=== PATIENT | male | born 1945 | race Caucasian/White ===

== ENCOUNTER → 2016-11-11 | Outpatient (CLI) | payer MEDICARE | END | disposition home or self-care (01) | LOC: GMAM 10:35 | PROVIDERS: ATTEND Family Medicine | DX: Z12.5 Encounter for screening for malignant neoplasm of prostate (principal) ==

== ENCOUNTER → 2017-12-01 | Outpatient (CLI) | payer MEDICARE | LOC: GMAM 10:14 | PROVIDERS: ATTEND Family Medicine | DX: Z12.5 Encounter for screening for malignant neoplasm of prostate (principal) ==

== ENCOUNTER → 2018-01-13 | Outpatient (CLI) | payer MEDICARE | LOC: GMAM 11:05 | PROVIDERS: ATTEND Family Medicine | DX: N18.3 Chronic kidney disease, stage 3 (moderate) (principal) ==

== ENCOUNTER → 2018-02-16 | Outpatient (CLI) | payer MEDICARE ==
--- NOTE | 2018-02-16 10:53 | US ---
EXAM DESCRIPTION: Carotid Duplex CLINICAL HISTORY: CAROTID STENOSIS COMPARISON: None Available. TECHNIQUE: Carotid Doppler ultrasound FINDINGS: Right Submitted images show tortuosity of the right CCA with calcified plaque of the right carotid bulb and proximal internal and external carotid arteries. Axial images show 27% narrowing of the right ICA luminal area. There is 34% area narrowing of the right carotid bulb. The following flow velocities were obtained: Common carotid artery peak systolic flow velocity measures 113 centimeters per second. Internal carotid artery peak systolic flow velocity measures 72 centimeters per second. External carotid artery peak systolic flow velocity measures 66 centimeters per second. Flow in the right vertebral artery is antegrade. The right internal carotid to common carotid peak systolic flow velocity ratio equals 0.6 which is normal. Left Submitted images show mild tortuosity of the left CCA with arteriosclerotic plaque in the left carotid bifurcation. The following flow velocities were obtained: Common carotid artery peak systolic flow velocity measures 124 centimeters per second. Internal carotid artery peak systolic flow velocity measures 57 centimeters per second. External carotid artery peak systolic flow velocity measures 82 centimeters per second. Flow in the left vertebral artery is antegrade. The left internal carotid to common carotid peak systolic flow velocity ratio of 0.5 is normal. IMPRESSION: Arteriosclerotic plaque at the carotid bifurcations bilaterally, right more than left. No hemodynamically significant stenosis. Electronically signed by: Keven Myers MD 02/16/2018 10:52 AM CDT
--- NOTE | 2018-02-16 10:58 | US ---
Exam: Bilateral lower extremity arterial Doppler sonogram CLINICAL HISTORY: Peripheral vascular disease TECHNIQUE: Doppler sonographic evaluation of the bilateral lower extremities was performed. Gordon scale images are evaluated. Color Doppler imaging was performed. Duplex Doppler evaluation with spectral waveform analysis. FINDINGS: Right Submitted sonographic images reveal calcified plaque in the common femoral and superficial femoral arteries with positive color flow. There is calcified plaque in the right popliteal artery. Positive arterial flow in the vessels below the right knee. The following peak systolic flow flow velocity measurements were obtained: Common femoral artery velocity equals 62 centimeters per second , triphasic. Superficial femoral artery velocity equals 52-95 centimeters per second , biphasic. Popliteal artery velocity equals 49 centimeters per second , triphasic. Peroneal artery velocity equals 44 centimeters per second , biphasic. Posterior tibial artery velocity equals 55 centimeters per second , biphasic. Dorsalis pedis artery velocity equals 14 centimeters per second , biphasic. Left Submitted sonographic images reveal calcified plaque in the left superficial femoral artery and popliteal artery. Arterial flow is seen below the left knee. The following peak systolic flow flow velocity measurements were obtained: Common femoral artery velocity equals 95 centimeters per second , triphasic. Superficial femoral artery velocity equals 53-87 centimeters per second , triphasic. Popliteal artery velocity equals 47 centimeters per second , triphasic. Peroneal artery velocity equals 43 centimeters per second , biphasic. Posterior tibial artery velocity equals 53 centimeters per second , biphasic. Dorsalis pedis artery velocity equals 24 centimeters per second , biphasic. IMPRESSION: Multiphasic flow in the lower extremity arteries with no significant stenosis identified on Doppler sonography. Electronically signed by: Keven Myers MD 02/16/2018 10:57 AM CDT
== END ==
LOC: US 09:00
PROVIDERS: ATTEND Family Medicine
DX: I65.23 Occlusion and stenosis of bilateral carotid arteries (principal); I73.9 Peripheral vascular disease, unspecified

== ENCOUNTER → 2018-12-18 | Outpatient (CLI) | payer MEDICARE | LOC: GMAM 11:46 | PROVIDERS: ATTEND Family Medicine | DX: Z12.5 Encounter for screening for malignant neoplasm of prostate (principal) ==

== ENCOUNTER 2019-08-17 05:45 | Day surgery (SDC) | payer MEDICARE ==
[2019-08-17] MEDS ORDERED: ePHEDrine SULF 50 MG/ML ONE (07:00)
[2019-08-17] MEDS ORDERED: LIDOCAINE 1% 10 ML VIAL INJ ONE (07:00)
[2019-08-17] MEDS ORDERED: PROPOFOL 200 MG/20 ML VIAL IV ONE (07:00)
[2019-08-17] MEDS ORDERED: LACTATED RINGERS 1,000 ML ONE (07:30)
[2019-08-17] MEDS ORDERED: LACTATED RINGERS 1,000 ML IVS ONE (09:05)
[2019-08-17] MEDS ORDERED: fentaNYL CITRATE INJ 50 MCG/ML AMP ONE (09:45)
--- NOTE | 2019-08-17 10:51 | OP ---
DATE OF PROCEDURE: 08/17/19 PREOPERATIVE DIAGNOSIS: 1. Positive Cologuard. 2. History of black stools. POSTOPERATIVE DIAGNOSIS: 1. Positive Cologuard. 2. History of black stools. PROCEDURE: 1. EGD. SURGEON: Pradeep Lomax MD ANESTHESIA: General. FINDINGS: Normal EGD. PROCEDURE: In the lateral position, the patient was made comfortable with general IV anesthesia. The endoscope was passed easily through the pharynx and into the esophagus. The GE junction appeared normal. Photo was taken. The stomach was then entered. There was no evidence of polyps or significant gastritis or any ulcers. The third part of the duodenum was cannulated with no abnormalities. Likewise, on withdrawal and all the surfaces were examined. Retroflexion revealed no evidence of a hiatal hernia, no abnormalities in the fundus. It was then withdrawn. The esophagus was more thoroughly examined and no abnormalities were seen. The procedure was terminated. INDICATION: 1. Positive blood in stool. PROCEDURE: 1. Colonoscopy. PROCEDURE: After the EGD was terminated, the patient was repositioned. Digital rectal exam revealed some hemorrhoids and no evidence of bleeding or thrombosis. The colonoscope was introduced and readily passed to the cecum. The appendiceal orifice was identified. Upon withdrawal, a few smaller polyps were noted. One was about 2 cm and taken with a snare at 30 cm. Another one at 40 cm was removed with a biopsy. This was only about 2 mm and then an additional one 2 mm was completely excised with biopsy at 30 cm. Retroflexion of the rectum was normal. There were no significant internal hemorrhoids. There was no bleeding, no complications. The scope was withdrawn with the air. The patient was then awakened and taken to Recovery to be discharged. #[id number] cc: Trey Ramírez MD [facility]
[2019-08-17 11:40] VITALS: BP 160/82; TEMP 96.4; O2SAT 97
== END 2019-08-17 11:30 | disposition home or self-care (01) ==
LOC: AMB 05:45
PROVIDERS: ATTEND Surgery
DX: R19.5 Other fecal abnormalities (principal); D12.6 Benign neoplasm of colon, unspecified; K21.9 Gastro-esophageal reflux disease without esophagitis; I25.10 Atherosclerotic heart disease of native coronary artery without angina pectoris; E78.00 Pure hypercholesterolemia, unspecified; G89.29 Other chronic pain; I12.9 Hypertensive chronic kidney disease with stage 1 through stage 4 chronic kidney disease, or unspecified chronic kidney disease; N18.9 Chronic kidney disease, unspecified; Z87.891 Personal history of nicotine dependence; Z95.5 Presence of coronary angioplasty implant and graft; Z88.2 Allergy status to sulfonamides; Z88.5 Allergy status to narcotic agent; Z88.8 Allergy status to other drugs, medicaments and biological substances; Z79.82 Long term (current) use of aspirin; Z79.01 Long term (current) use of anticoagulants; Z79.899 Other long term (current) drug therapy
CPT/HCPCS: 00813; 43235; 45380; 45385; 88305; J3010; J3490; J7120

== ENCOUNTER → 2020-01-03 | Outpatient (CLI) | payer MEDICARE | LOC: GMAM 11:36 | PROVIDERS: ATTEND Family Medicine | DX: Z12.5 Encounter for screening for malignant neoplasm of prostate (principal) ==

== ENCOUNTER → 2020-04-22 | Outpatient (CLI) | payer MEDICARE | LOC: GMAM 10:15 | PROVIDERS: ATTEND Family Medicine | DX: M06.9 Rheumatoid arthritis, unspecified (principal) ==

== ENCOUNTER → 2020-06-26 | Outpatient (CLI) | payer MEDICARE | LOC: GMAM 11:18 | PROVIDERS: ATTEND Family Medicine | DX: M06.9 Rheumatoid arthritis, unspecified (principal); Z79.899 Other long term (current) drug therapy; E78.2 Mixed hyperlipidemia ==

== ENCOUNTER 2020-07-09 12:47 | Outpatient (CLI) | payer MEDICARE | END 2020-07-14 13:49 | disposition home or self-care (01) | LOC: INFRM 12:47 | PROVIDERS: ATTEND Family Medicine | DX: U07.1 COVID-19 (principal); I10 Essential (primary) hypertension; I25.10 Atherosclerotic heart disease of native coronary artery without angina pectoris; Z23 Encounter for immunization ==